=== PATIENT | female | born 1980 | race Caucasian/White ===

== ENCOUNTER 2020-08-01 10:31 | Emergency (ER) | payer SELFPAY ==
[~2020-08-01] VITALS: Ht 167.6 cm; Wt 118.2 kg
[~2020-08-01 10:31] MED LIST: AFRIN NASAL SPRA3 ML NAS; FLONASEALLERGY NS; IBU600 MG PO; NORCO 325 MG-51 TAB PO; PEPCID 20MG TAB20 MG PO; ULTRAM 50MG TAB50 MG PO; ZOFRAN 4MG T4 MG/TAB PO
[2020-08-01 10:41] VITALS: TEMP 97.8
[2020-08-01 11:38] LABS: BASO % 0.2 % (0.0-2.0); EOS # 0.1 (0.0-0.7); EOS % 0.8 % (0-4.0); GRAN # 10.3 (1.4-6.5); GRAN % 78.7 % (42.2-75.2); HEMATOCRIT 40.6 % (37.0-47.0); HEMOGLOBIN 13.2 g/dl (12.5-16.0); LYMPH # 1.9 (1.2-3.4); LYMPH % 14.6 % (20.0-51.0); MEAN CELL VOLUME 87 fl (80.0-100.0); MEAN CORPUSCULAR HEMOGLOBIN 28 pg (27.0-31.0); MEAN CORPUSCULAR HGB CONC 33 g/dl (33.0-37.0); MONO # 0.7 (0.1-0.6); MONO % 5.1 % (1.7-9.3); PLATELET COUNT 256 K/mm3 (130-400); RED BLOOD COUNT 4.69 M/mm3 (4.10-5.30); REDCELL DISTRIBUTION WIDTH-CV 12.1 % (11.5-14.5)
[2020-08-01 11:49] LABS: ALBUMIN 4.4 gm/dL (3.5-5.0); BILIRUBIN,TOTAL 0.8 mg/dL (0.0-1.0); C-REACTIVE PROTEIN 1.4 mg/dL (0.0-0.9); CALCIUM 9.5 mg/dL (8.4-10.2); CREATININE, serum 0.77 (0.52-1.25); POTASSIUM 3.7 mmol/L (3.4-5.0); TOTAL PROTEIN 7.6 gm/dL (6.4-8.2)
[2020-08-01 13:13] LABS: COLLECTION METHOD CLEAN CATCH
[2020-08-01 13:23] LABS: MUCOUS Present /lpf; PH 7 (5-8); SQUAMOUS EPITHELIAL 0-2 /hpf; URINE APPEARANCE Clear; URINE BACTERIA Rare /hpf; URINE BILIRUBIN Negative (NEGATIVE); URINE BLOOD Negative (NEGATIVE); URINE COLOR Colorless; URINE GLUCOSE Negative (NEGATIVE); URINE KETONE Trace (NEGATIVE); URINE LEUKOCYTE ESTERASE Negative (NEGATIVE); URINE NITRATE Negative (NEGATIVE); URINE PROTEIN(semi-quant) Negative (NEGATIVE); URINE RBC 0-2 /hpf; URINE UROBILINOGEN Negative (NEGATIVE)
[2020-08-01] MEDS ORDERED: PHENERGAN 25 TA25 MG PO (13:31)
[2020-08-01 13:52] VITALS: BP 120/73; PULSE 70
== END 2020-08-01 13:52 | disposition home or self-care (01) ==
LOC: COL.ER 10:31
PROVIDERS: Family Medicine
DX: O21.0 Mild hyperemesis gravidarum (principal); Z3A.08 8 weeks gestation of pregnancy; Z88.1 Allergy status to other antibiotic agents; Z88.8 Allergy status to other drugs, medicaments and biological substances
CPT/HCPCS: J2550; J7120

== ENCOUNTER 2021-03-05 06:19 | Inpatient (IN) | payer OTHER ==
[~2021-03-05] VITALS: Ht 165.1 cm; Wt 126.4 kg
[~2021-03-05 06:19] MED LIST changes: +PHENERGAN 25 TA25 MG PO
[2021-03-07] VITALS (32 sets, daily range): BP systolic 100–156; BP diastolic 55–92; PULSE 65–108; TEMP 98.1–98.5
--- NOTE | 2021-03-07 08:23 | NUR ---
PT. AMBULATORY TO UNIT FOR SCHEDULED INDUCTION WITH . PT. ESCORTED TO LR3 AND CHANGED INTO GOWN AND RESTING ON BED. EFM/TOCO APPLIED, VITALS WNL, AND PT. STATES NO COMPLAINTS. ASSESSMENTS DONE, CONSENTS SIGNED. 18G IV WAS PLACED IN R. LOWER FOREARM, AND LABS WERE DRAWN. (SEE REVIEW SECTION) SVE WAS 3/50/-3. LR STARTED WITH PEN G (SEE EMAR) IVPB, AND PITOCIN STARTED AT 2MU/MIN PER ORDER SET. WILL CONTINUE TO MONITOR PT.
[2021-03-07 08:37] LABS: HEMOGLOBIN 12.1 g/dl (12.5-16.0); MEAN CELL VOLUME 85 fl (80.0-100.0); MEAN CORPUSCULAR HEMOGLOBIN 29 pg (27.0-31.0); MEAN CORPUSCULAR HGB CONC 34 g/dl (33.0-37.0); MEAN PLATELET VOLUME 11.8 fl (7.4-10.4); PLATELET COUNT 276 K/mm3 (130-400); RED BLOOD COUNT 4.19 M/mm3 (4.10-5.30); REDCELL DISTRIBUTION WIDTH-CV 13.2 % (11.5-14.5)
[2021-03-07 08:40] LABS: HEMATOCRIT 35.8 % (37.0-47.0)
--- NOTE | 2021-03-07 08:45 | NUR ---
FHT STRIP: 0730: BASELINE OF 130S FROM [id number]. STRIP BROKEN DUE TO PT. SITITNG UP FOR CONSENTS. 0800: BROKEN STRIP NOTED DUE TO PT. UP TO BATHROOM
[2021-03-07 09:14] LABS: BAND 11 % (0-10); EOSINOPHIL 3 % (0-4); LYMPHOCYTE 9 % (20.0-51.0); METAMYELOCYTE 1 % (0-0); NEUTROPHILS 70 % (42.0-75.2); PLATELET ESTIMATE NORMAL (NORMAL)
--- NOTE | 2021-03-07 11:10 | NUR ---
EPIDURAL: 0935: DAKOTAH MIRELES CRNA AT BS PT. SITTING UP AT SIDE OF BED. 0937: TO COMPLETED 951: TEST DOSE 1000: PT. LAID BACK DOWN W. L. SIDE WEDGE. PT. TOLERATED PROCEDURE WELL AND HAS NO COMPLAINTS. WILL CONTINUE TO MONITOR PT.
--- NOTE | 2021-03-07 14:35 | NUR ---
DELIVERY NOTE: PT. PROGRESSED TO COMPLETE AT [address] LIU INSTRUCTED TO START PUSHING. PUSHED WITH NEXT CONTRACTION AND NOTED PROLONGED DECELERATION AFTER PUSHING ATTEMPT WITH MICAH TO THE 80S. LR BOLUS WAS STARTED, PIT WAS PAUSED, AND O2 WAS APPLIED VIA FACEMASK. DR. LIU CALLED AND INFORMED OF SITUATION. HE STATES HE WILL BE RIGHT OVER DR. LIU AT BS AND SAID TO LABOR DOWN WITH POSITION CHANGES AND SEE IF WILL COME DOWN ON OWN. PT. WAS THEN PLACED IN RL W. PEANUT BALL. DR. LIU AT BS AT 1320 TO CHECK PT. SVE C/100/+2. STARTED PUSHING WITH PT. BUT DIFFICULTY COMING UP TO BASELINE AFTER CTX. DR. LIU AT BS AT 1328 TO PUSH WITH PT. HE SAYS TO SET UP FOR DELIVERY. AT THIS TIME, NURSERY IS CALLED, BED IS BROKEN DOWN, AND DR. LIU AT PERINEUM FOR DELIVERY. THIS RN INSTRUCTED PT. ON PUSHING AGAIN AND STARTED PUSHING WITH CONTRACTIONS. VIABLE INFANT WAS BORN VIA AT 1346. PLACENTA WAS SPONTANEOUSLY DELIVERED AT 1351 AND PP PIT WAS STARTED. PER DR. LIU, PERINEUM INTACT. PT. HAS NO COMPLAINTS AT THIS TIME AND TOLERATED DELIVERY WELL. PT. WILL ENTER RECOVERY PERIOD
[2021-03-08 06:53] LABS: HEMOGLOBIN 11.8 g/dl (12.5-16.0)
[2021-03-08 06:55] LABS: HEMATOCRIT 35.7 % (37.0-47.0)
[2021-03-08 09:30] VITALS: BP 123/69; PULSE 76; TEMP 97.6
[2021-03-08] MEDS ORDERED: IBU600 MG PO (12:53)
--- NOTE | 2021-03-08 12:56 | NUR ---
Rests in bed, alert. Request pain medication. Ibuprofen 600 mg given per request and as ordered.
[2021-03-08 16:15] VITALS: BP 117/71; PULSE 67; TEMP 98.1
[2021-03-08 21:00] VITALS: BP 117/62; PULSE 68; TEMP 97.9
[2021-03-09 07:00] VITALS: BP 119/74; PULSE 88; TEMP 98.2
== END 2021-03-09 10:00 | disposition home or self-care (01) | DRG 807 ==
LOC: LDR 03-07 06:27 → OB 03-07 06:27
PROVIDERS: ADMIT Obstetrics & Gynecology
PROC: 10E0XZZ Delivery of Products of Conception, External Approach (ICD-10-PCS; principal; 2021-03-07)
PROC: 10907ZC Drainage of Amniotic Fluid, Therapeutic from Products of Conception, Via Natural or Artificial Opening (ICD-10-PCS; 2021-03-07)
PROC: 3E033VJ Introduction of Other Hormone into Peripheral Vein, Percutaneous Approach (ICD-10-PCS; 2021-03-07)
DX: O48.0 Post-term pregnancy (principal); Z37.0 Single live birth; O99.824 Streptococcus B carrier state complicating childbirth; O99.214 Obesity complicating childbirth; O99.62 Diseases of the digestive system complicating childbirth; K21.9 Gastro-esophageal reflux disease without esophagitis; O71.82 Other specified trauma to perineum and vulva; Z3A.40 40 weeks gestation of pregnancy; Z87.51 Personal history of pre-term labor
CPT/HCPCS: J2405; J2540; J2590; J7120